=== PATIENT | male | born 1990 | race Caucasian/White ===

== ENCOUNTER 2016-12-06 01:31 | Emergency (ER) | payer OTHER ==
[~2016-12-06] VITALS: Ht 182.9 cm; Wt 111.4 kg
[2016-12-06 01:34] VITALS: TEMP 36.8; Ht 182.9 cm; Wt 111.4 kg
[2016-12-06] MEDS ORDERED: XYLOCAINE 1%/SOD BICARB 20 ML VIAL INFIL ONE (01:47)
--- NOTE | 2016-12-06 01:49 | EMERGENCY ROOM VISIT NOTE ---
History Report prepared by Amarjit: Guido Stover Under the Supervision of: Dr. Cassi Kessler D.O. 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 States tetanus is UTD. History of Present Illness The patient is a 25 year old male who presents to the Emergency Room with complaints of persistent left thumb pain that started prior to arrival. The patient was trying to open super glue with a pocket knife when he slipped and cut his finger with the knife. The patient denies any pertinent medical history. He states he has had his tetanus shot within the last 10 years. Source of History: patient Onset: prior to arrival Position: hand (left) Timing: other (persistent) Note: Denies: any pertinent medical history Review of Systems See HPI for pertinent positives & negatives. The patient did not injure any other part of his body during the incident. Past Medical & Surgical Medical Problems: (1) No Known Active Medical Problems Family History FH: diabetes mellitus FH: heart disease FH: hypertension Social History Smoking Status: Never Smoker Alcohol Use: none Housing Status: lives alone Occupation Status: employed Current/Historical Medications No Active Prescriptions or Reported Meds Allergies Coded Allergies: No Known Allergies (Unverified , 12/06/16) Physical Exam Vital Signs Date Time Temp Pulse Resp B/P Pulse Ox O2 Delivery O2 Flow Rate FiO2 12/06/16 02:56 73 16 122/80 97 12/06/16 01:34 36.8 75 18 170/75 97 Room Air Physical Exam Left hand: 2 cm laceration of left hand over the lateral aspect of proximal thumb. There was moderate bleeding. Medical Decision & Procedures Procedure Location: Left hand over the lateral aspect of proximal thumb Total length: 2 cm Complexity: simple Verbal consent was obtained. A time out was taken and the correct patient and site identified. The skin was prepped with betadine. The target area was anesthetized with 1.5 mls of 1% lidocaine without epinephrine. Copious irrigation was performed using sterile water. The skin was re-prepped with betadine and a sterile field set. The wound was explored for foreign bodies and none found. Examination revealed no injury to deep structures such as tendons, bone, or significant blood vessels. Debridement was not performed. The wound edges were approximated using 4, 4-0 simple interrupted ethilon sutures. Hemostasis and excellent approximation was achieved. Antibacterial ointment and a sterile dressing applied. Detailed wound care instructions and signs and symptoms of infection reviewed with the patient. No complications and the patient tolerated the procedure well. ED Course 0142: The patient was evaluated in room C11. A complete history and physical exam was performed. 0147: Ordered Lidocaine HCl 20 ml INFIL. 0154: At this time, I performed a laceration repair on the patient. See procedure note above for details. 0211: Upon reevaluation, the patient is resting comfortably. I discussed findings and results with him. He verbalized agreement of the treatment plan. The patient was discharged home. Medical Decision This is a 25-year-old male patient who cut his left thumb with a knife. The wound was irrigated and no foreign objects were identified. The patient had normal range of motion within the thumb as well as normal strength. The laceration was repaired using Ethilon suture material. He was given wound care instructions and asked to return within 8-10 days to have the sutures removed. Impression Primary Impression: Laceration of left thumb Scribe Attestation The scribe's documentation has been prepared under my direction and personally reviewed by me in its entirety. I confirm that the note above accurately reflects all work, treatment, procedures, and medical decision making performed by me. Departure Information Dispostion Home / Self-Care Prescriptions No Active Prescriptions or Reported Meds Referrals No Doctor, Assigned (PCP) Forms HOME CARE DOCUMENTATION FORM, IMPORTANT VISIT INFORMATION Patient Instructions ED Laceration Hand, My [facility] Additional Instructions Rest with left hand elevated. Keep the wound clean and covered with antibiotic ointment. Watch for signs of infection. Have the sutures removed in next 8-10 days Use tylenol or ibuprofen for pain
[2016-12-06 02:56] VITALS: BP 122/80; PULSE 73; O2SAT 97
== END 2016-12-06 02:57 | disposition home or self-care (01) ==
LOC: C.EDB 01:32 → C.EDC 02:57
DX: S61.012A Laceration without foreign body of left thumb without damage to nail, initial encounter (principal); W26.0XXA Contact with knife, initial encounter; Y93.89 Activity, other specified; Y99.8 Other external cause status; Z83.3 Family history of diabetes mellitus; Z82.49 Family history of ischemic heart disease and other diseases of the circulatory system

== ENCOUNTER 2016-12-14 08:17 | Emergency (ER) | payer OTHER ==
[~2016-12-14] VITALS: Ht 182.9 cm; Wt 109.1 kg
[2016-12-14 08:20] VITALS: BP 137/85; PULSE 75; TEMP 36.8; O2SAT 98; Ht 182.9 cm; Wt 109.1 kg
--- NOTE | 2016-12-14 08:38 | EMERGENCY ROOM VISIT NOTE ---
ED Visit Note First contact with patient: 08:24 CHIEF COMPLAINT: Suture removal This patient returns to the ED today for removal of sutures that were placed 8 days ago. There has been no swelling, redness, or drainage from the wound. The patient feels like the laceration is healing well. REVIEW OF SYSTEMS: Head: No headache, injury or neck pain. Skin: No rash, new lesions, or masses. General: No fever or chills, fatigue, loss of appetite , or significant recent weight gain or loss. PMH: The patient is healthy; there is no significant medical or surgical history. SOCIAL HISTORY: Patient lives at home. PHYSICAL EXAM: Vital Signs: Reviewed Nurse's notes. There is a sutured wound on the left thumb with no signs of infection. There is no erythema, swelling, or tenderness. EMERGENCY DEPARTMENT COURSE: Patient presents with [address] without evidence of infection. I did remove one of the stitches to evaluate integrity of the new growth of skin. It began to separate. I suspect that because the patient has used Neosporin on the wound for the past 8 days the wound does not properly healed. I instructed him to return on Wednesday, and stop using the antibiotic on it. He is to return at that time for potential suture removal. He is to follow up for the elevated blood pressure. Current/Historical Medications No Active Prescriptions or Reported Meds Allergies Coded Allergies: No Known Allergies (Unverified , 12/14/16) Vital Signs Date Time Temp Pulse Resp B/P (MAP) Pulse Ox O2 Delivery O2 Flow Rate FiO2 12/14/16 08:20 36.8 75 18 137/85 98 Room Air Departure Information Impression Primary Impression: Encounter for removal of sutures Dispostion Home / Self-Care Condition GOOD Prescriptions No Active Prescriptions or Reported Meds Referrals No Doctor, Assigned (PCP) Patient Instructions My [facility] Additional Instructions You were seen in the emergency department for removal of the stitches. As we discussed I do not think that they're ready at this time, it is recommended that you do not put any more Neosporin on this region and let the thumb dry. Please be very careful to not submerge this in water until these are removed. Please return here on Wednesday, December 18 to have them removed. Please watch for signs of infection to include redness, swelling, drainage or discharge from the wound. If these are to develop please return. Thank you for your time and having today.
== END 2016-12-14 08:50 | disposition home or self-care (01) ==
LOC: C.EDA 08:22
DX: S61.012D Laceration without foreign body of left thumb without damage to nail, subsequent encounter (principal); X58.XXXD Exposure to other specified factors, subsequent encounter

== ENCOUNTER 2016-12-18 08:24 | Emergency (ER) | payer OTHER ==
[~2016-12-18] VITALS: Ht 182.9 cm; Wt 109.3 kg
[2016-12-18 08:30] VITALS: BP 138/83; PULSE 69; TEMP 36.8; O2SAT 99; Ht 182.9 cm; Wt 109.3 kg
--- NOTE | 2016-12-18 08:45 | EMERGENCY ROOM VISIT NOTE ---
ED Visit Note First contact with patient: 08:32 CHIEF COMPLAINT: Suture removal This patient returns to the ED today for removal of sutures that were placed 12 days ago. There has been no swelling, redness, or drainage from the wound. The patient feels like the laceration is healing well. REVIEW OF SYSTEMS: Head: No headache, injury or neck pain. Skin: No rash, new lesions, or masses. General: No fever or chills, fatigue, loss of appetite , or significant recent weight gain or loss. PMH: The patient is healthy; there is no significant medical or surgical history. SOCIAL HISTORY: Patient lives at home. PHYSICAL EXAM: Vital Signs: Reviewed Nurse's notes. There is a sutured wound on the left thumb with no signs of infection. There is no erythema, swelling, or tenderness. EMERGENCY DEPARTMENT COURSE: The sutures were removed without any difficulty. Wound edges were reinforced with benzoin and Steri-Strips. Current/Historical Medications No Active Prescriptions or Reported Meds Allergies Coded Allergies: No Known Allergies (Unverified , 12/14/16) Vital Signs Date Time Temp Pulse Resp B/P (MAP) Pulse Ox O2 Delivery O2 Flow Rate FiO2 12/18/16 08:30 36.8 69 20 138/83 99 Room Air Departure Information Impression Primary Impression: Encounter for removal of sutures Prescriptions No Active Prescriptions or Reported Meds Referrals No Doctor, Assigned (PCP) Patient Instructions [facility]
== END 2016-12-18 08:50 | disposition home or self-care (01) ==
LOC: C.EDB 08:25 → C.EDA 08:50
DX: S61.012D Laceration without foreign body of left thumb without damage to nail, subsequent encounter (principal); X58.XXXD Exposure to other specified factors, subsequent encounter